=== PATIENT | female | born 1985 | race Caucasian/White ===

== ENCOUNTER 2021-04-13 13:22 | Emergency (ER) | payer OTHER, SELFPAY ==
[2021-04-13 13:52] VITALS: BP 163/104; PULSE 118; RESP 16; TEMP 36.6; O2SAT 100; BMI 28.3
[2021-04-13 14:59] VITALS: BP 146/86; PULSE 74; O2SAT 89
[2021-04-13 15:00] VITALS: PULSE 101; O2SAT 100
[2021-04-13 15:30] VITALS: PULSE 93; O2SAT 99
--- NOTE | 2021-04-13 15:52 | ED.BACK ---
HPI - Back Pain/Injury <Nba Orourke PA-C - Last Filed: 04/13/21 18:56> General Chief Complaint: Back Pain/Injury Stated Complaint: old back injury, pain, tingeling down leg Time Seen by Provider: 04/13/21 15:15 Source: patient Limitations: no limitations History of Present Illness HPI Narrative: Patient is a 35-year-old female presenting to the emergency department today for an evaluation of worsening back pain. Patient states that she has an approximately a year long history L5-S1 disc protrusion for which she is currently in physical therapy. She states that last night her pain significantly worsened, noting that she has experienced a ?hot and cold? sensation throughout the right thigh. Additionally, patient notes increased frequency of urination but denies pain with urination or blood in her urine. Patient denies fever, chills, chest pain, shortness of breath, cough, nausea, vomiting, diarrhea, abdominal pain, dysuria, hematuria, numbness or tingling in the anterior thighs bilaterally, urinary incontinence, or fecal incontinence. No other concerns voiced at this time. Related Data Previous Rx's Medication Instructions Recorded cyclobenzaprine 10 mg tablet 10 mg PO BEDTIME PRN #10 tab 04/13/21 gabapentin 300 mg capsule 300 mg PO BEDTIME #10 cap 04/13/21 prednisone 20 mg tablet 20 mg PO BID #3 tab 04/13/21 lidocaine 4 % topical patch (Lido 1 patch TOPICAL DAILY PRN #30 ea 04/26/21 Abdoul) meloxicam 7.5 mg tablet 7.5 mg PO DAILY PRN #20 tab 04/26/21 methocarbamol 500 mg tablet 500 mg PO BEDTIME PRN #20 tab 04/26/21 Allergies Allergy/AdvReac Type Severity Reaction Status Date / Time erythromycin base Allergy Intermediate Verified 04/13/21 13:58 Review of Systems <Nba Orourke PA-C - Last Filed: 04/13/21 18:56> Constitutional Constitutional: Denies chills, Denies fatigue, Denies fever(s), Denies frequent falls, Denies lethargy and Denies weakness Eyes Eyes: Denies loss of vision ENT Ears, Nose, Mouth, and Throat: Denies dizziness and Denies neck pain Cardiovascular Cardiovascular: Denies chest pain, Denies irregular heart rhythm, Denies lightheadedness, Denies palpitations, Denies dyspnea, Denies dyspnea on exertion and Denies orthopnea Respiratory Respiratory: Denies cough, Denies dyspnea, Denies dyspnea on exertion and Denies wheezing Gastrointestinal Gastrointestinal: Denies abdominal pain, Denies change in bowel habits, Denies diarrhea, Denies nausea and Denies vomiting Genitourinary Genitourinary: Denies hematuria, Denies flank pain, Denies urinary incontinence and Reports urinary urgency (Increased frequency) Musculoskeletal Musculoskeletal: Reports back pain, Denies muscle weakness, Denies neck pain, Denies numbness, Reports radiating pain into limb (Right thigh, hot cold sensations) and Denies tingling Neurologic Neurologic: Denies behavioral changes, Denies confusion, Denies dizziness, Denies frequent falls, Denies loss of vision, Denies numbness, Denies tingling and Denies weakness Psychiatric Psychiatric: Denies behavioral changes and Denies confusion Endocrine Endocrine: Denies fatigue and Denies palpitations Allergic/Immunologic Allergic/Immunologic: Denies wheezing Patient History <Nba Orourke PA-C - Last Filed: 04/13/21 18:56> Social History Smoking Status: Never smoker Smoking Status: Never smoker Substance Use Type: does not use Exam <ZEFERINO Briones Last Filed: 04/13/21 18:56> Narrative Exam Narrative: GENERAL: 35 year old patient appears stated age. Well-developed patient, in mild distress. HEAD: Atraumatic. Normocephalic. EYES: Pupils equal round and reactive. Extraocular motions intact. No scleral icterus. No injection or drainage. ENT: Nose without bleeding, purulent drainage. Throat without erythema, tonsillar hypertrophy or exudate. Airway patent. NECK: Trachea midline. Non tender CARDIOVASCULAR: Regular rate and rhythm without murmurs, gallops, or rubs. RESPIRATORY: Clear to auscultation. Breath sounds equal bilaterally. No wheezes, rales, or rhonchi. GASTROINTESTINAL: Abdomen soft, non-tender, nondistended. EXTREMITIES: No edema or joint tenderness. No deformity noted throughout the bilateral lower extremities. BACK: No deformity or crepitance. No flank tenderness. Mild tenderness appreciated over the right-sided paraspinal muscles. NEURO: AOx3. No saddle anesthesia appreciated. SKIN: No rash or erythema of visible areas Initial Vital Signs Initial Vital Signs: Vital Signs Temperature 98 F 04/13/21 13:52 Pulse Rate 118 H 04/13/21 13:52 Respiratory Rate 16 04/13/21 13:52 Blood Pressure 163/104 H 04/13/21 13:52 Pulse Oximetry 100 04/13/21 13:52 <Holden Irving MD - Last Filed: 04/27/21 01:32> Initial Vital Signs Initial Vital Signs: Vital Signs Temperature 98 F 04/13/21 13:52 Pulse Rate 118 H 04/13/21 13:52 Respiratory Rate 16 04/13/21 13:52 Blood Pressure 163/104 H 04/13/21 13:52 Pulse Oximetry 100 04/13/21 13:52 Course <Nba Orourke PA-C - Last Filed: 04/13/21 18:56> Course Course Narrative: PO prednisone, gabapentin, Flexeril administered Orders Ordered: Discontinued Medications Cyclobenzaprine HCl (Cyclobenzaprine 10 Mg Tablet) 10 mg PO NOW ONE Stop: 04/13/21 15:51 Last Admin: 04/13/21 16:14 Dose: 10 mg Documented by: DIAN Gabapentin (Gabapentin 300 Mg Capsule) 300 mg PO NOW ONE Stop: 04/13/21 15:51 Last Admin: 04/13/21 16:14 Dose: 300 mg Documented by: DIAN Prednisone (Prednisone 20 Mg Tablet) 40 mg PO NOW ONE Stop: 04/13/21 15:51 Last Admin: 04/13/21 16:14 Dose: 40 mg Documented by: DIAN Vital Signs Vital signs: Vital Signs - 8 hr 04/13/21 13:52 04/13/21 14:59 04/13/21 15:00 Temperature 98 F Pulse Rate 118 H 74 101 H Respiratory Rate 16 Blood Pressure 163/104 H 146/86 H Pulse Oximetry 100 89 L 100 04/13/21 15:30 04/13/21 16:00 Temperature Pulse Rate 93 H 96 H Respiratory Rate Blood Pressure 126/78 Pulse Oximetry 99 98 <Holden Irving MD - Last Filed: 04/27/21 01:32> Orders Ordered: Discontinued Medications Cyclobenzaprine HCl (Cyclobenzaprine 10 Mg Tablet) 10 mg PO NOW ONE Stop: 04/13/21 15:51 Last Admin: 04/13/21 16:14 Dose: 10 mg Documented by: DIAN Gabapentin (Gabapentin 300 Mg Capsule) 300 mg PO NOW ONE Stop: 04/13/21 15:51 Last Admin: 04/13/21 16:14 Dose: 300 mg Documented by: DIAN Prednisone (Prednisone 20 Mg Tablet) 40 mg PO NOW ONE Stop: 04/13/21 15:51 Last Admin: 04/13/21 16:14 Dose: 40 mg Documented by: DIAN Vital Signs Vital signs: Vital Signs - 8 hr 04/13/21 13:52 04/13/21 14:59 04/13/21 15:00 Temperature 98 F Pulse Rate 118 H 74 101 H Respiratory Rate 16 Blood Pressure 163/104 H 146/86 H Pulse Oximetry 100 89 L 100 04/13/21 15:30 04/13/21 16:00 Temperature Pulse Rate 93 H 96 H Respiratory Rate Blood Pressure 126/78 Pulse Oximetry 99 98 MDM - Back Pain/Injury <Nba Orourke PA-C - Last Filed: 04/13/21 18:56> Lab Data Labs: Urine Dip Bedside Urine Glucose Negative Bedside Urine Bilirubin - Negative Bedside Urine Ketone - Negative Bedside Urine Occult Blood - Negative Bedside Urine Protein - Negative Bedside Urine Urobilinogen - Negative Bedside Urine Nitrite - Negative Bedside Urine Leukocytes - Negative Esterase MDM Narrative Medical decision making narrative: To consider disc herniation versus disc protrusion versus cauda equina syndrome verses pyelonephritis versus nephrolithiasis versus urinary tract infection. Overall history and physical examination are reassuring. Decided against imaging as no significant focal neurological deficits appreciated, and no recent injury or trauma was reported. Additionally, patient has a known history L5-S1 disc protrusion. At this time patient feels her symptoms have improved and she feels comfortable being discharged home. Strict return precautions discussed with patient prior to discharge. <Holden Irving MD - Last Filed: 04/27/21 01:32> Lab Data Labs: Urine Dip Bedside Urine Glucose Negative Bedside Urine Bilirubin - Negative Bedside Urine Ketone - Negative Bedside Urine Occult Blood - Negative Bedside Urine Protein - Negative Bedside Urine Urobilinogen - Negative Bedside Urine Nitrite - Negative Bedside Urine Leukocytes - Negative Esterase Discharge Plan Departure Patient Disposition: Home Clinical Impression: Herniation of intervertebral disc between L5 and S1 Strain of lumbar region Qualifiers: Encounter type: subsequent encounter Qualified Code(s): S39.012D - Strain of muscle, fascia and tendon of lower back, subsequent encounter Instructions: DI for Back Pain With Sciatica Activity Restrictions/Additional Instructions: *You have been diagnosed with strain of lumbar region, L5-S1 disc protrusion *What to do: *Please continue to take your regular medications as directed. [X] New medication prescriptions sent to your pharmacy: [facility] - Gabapentin, Prednisone, Flexeril [ ] New medication written as a paper prescription [ ] No new medications given *Please follow up with your primary care provider in 2-3 days, call for an appointment. Let them know you were seen in the Emergency Department and that we ask that you be seen in follow up. We will electronically transmit a record of today's note if your PCP is in our system *If you do not have a primary care provider please contact the [facility] Resource line at [phone]. They will ask some questions about your medical history and help get you set up with a doctor in the community. *Return to Emergency Department if you should have any new, worsening or concerning symptoms, such as fever greater than 101 F, shaking chills, worsening pain, urinary incontinence, fecal incontinence, decreased sensation along the inner thighs, persistent vomiting or other bothersome symptoms. Prescriptions: New prednisone 20 mg tablet 20 mg PO BID Qty: 3 0RF gabapentin 300 mg capsule 300 mg PO BEDTIME Qty: 10 0RF cyclobenzaprine 10 mg tablet 10 mg PO BEDTIME PRN (Reason: muscle spasm) Qty: 10 0RF No Action lidocaine [Lido Abdoul] 4 % adhesive patch,medicated 1 patch topical DAILY PRN (Reason: pain) Qty: 30 0RF meloxicam 7.5 mg tablet 7.5 mg PO DAILY PRN (Reason: low back pain) Qty: 20 0RF Rx Instructions: Please take with food and water to protect her stomach, please do not take with any other anti-inflammatories like ibuprofen or Aleve. methocarbamol 500 mg tablet 500 mg PO BEDTIME PRN (Reason: low back pain) Qty: 20 0RF Referrals: Maximus Hayward MD [Primary Care Provider] - <Holden Irving MD - Last Filed: 04/27/21 01:32> Cosign ED Attending Cosignature Attestation: I was immediately available in the department for consultation. This documentation has been reviewed and I agree with assessment and plan. Supervised by Holden Irving MD
[2021-04-13 16:00] VITALS: BP 126/78; PULSE 96; O2SAT 98
[2021-04-13] MEDS: GABAPENTIN 300 MG CAPSULE PO (16:14)
[2021-04-13] MEDS: predniSONE 20 MG TABLET 40 MG PO (16:14)
[2021-04-13] MEDS: CYCLOBENZAPRINE 10 MG TABLET PO (16:14)
== END 2021-04-13 17:02 | disposition home or self-care (01) ==
PROVIDERS: Emergency Provider Physician Assistant; PCP Family Medicine
DX: S39.012A Strain of muscle, fascia and tendon of lower back, initial encounter (principal); M51.27 Other intervertebral disc displacement, lumbosacral region; X58.XXXA Exposure to other specified factors, initial encounter
CPT/HCPCS: 81003; 99283

== ENCOUNTER 2021-04-26 15:05 | Emergency (ER) | payer OTHER, SELFPAY ==
[2021-04-26 15:08] VITALS: BP 172/89; PULSE 116; RESP 22; TEMP 36.6; O2SAT 100
--- NOTE | 2021-04-26 16:25 | ED_ITS ---
HPI - Back Pain/Injury <DEANA Worthington - Last Filed: 04/26/21 20:37> General Chief Complaint: Back Pain/Injury Stated Complaint: strange back pain, numb butt cheek Time Seen by Provider: 04/26/21 16:09 Source: patient History of Present Illness HPI Narrative: 35-year-old female presents to the emergency department with complaint of low back pain which is different nature than her prior L5-S1 injury. She reports that she does not have any sciatica with this, her pain is slightly higher than her prior pain was on her spine. She denies any fever, nausea vomiting, difficulty ambulating, loss of bowel or bladder, any sensation changes to her lower extremities. She does report that she has had an improvement of her low back pain on a prednisone but she did not feel much improvement from the gabapentin, the Flexeril that she was prescribed was helpful for her to sleep. She endorses that her right buttock has felt numb occasionally, and she denies any other radiation of this pain. She reports that hot packs are helpful, she denies any weakness, or altered sensation in her lower extremities. Related Data Previous Rx's Medication Instructions Recorded cyclobenzaprine 10 mg tablet 10 mg PO BEDTIME PRN #10 tab 04/13/21 gabapentin 300 mg capsule 300 mg PO BEDTIME #10 cap 04/13/21 prednisone 20 mg tablet 20 mg PO BID #3 tab 04/13/21 lidocaine 4 % topical patch (Lido 1 patch TOPICAL DAILY PRN #30 ea 04/26/21 Abdoul) meloxicam 7.5 mg tablet 7.5 mg PO DAILY PRN #20 tab 04/26/21 methocarbamol 500 mg tablet 500 mg PO BEDTIME PRN #20 tab 04/26/21 Allergies Allergy/AdvReac Type Severity Reaction Status Date / Time erythromycin base Allergy Intermediate Verified 04/13/21 13:58 Review of Systems <DEANA Worthington - Last Filed: 04/26/21 20:37> Review of Systems Narrative: General: denies fever, chills Head/Neck: denies headache, neck pain Eyes: denies visual changes, eye pain Cardio: denies chest pain, palpitations Respiratory: denies shortness of breath, cough GI: denies abdominal pain, nausea, vomiting, or diarrhea : denies dysuria, hematuria MSK: denies joint pain, muscle weakness, endorses low back pain in lumbar region, no skin changes, Skin: denies rash, itching Neuro: denies numbness, tingling Patient History <DEANA Worthington - Last Filed: 04/26/21 20:37> Social History Smoking Status: Never smoker Smoking Status: Never smoker Substance Use Type: does not use Exam <DEANA Worthington - Last Filed: 04/26/21 20:37> Narrative Exam Narrative: Independently reviewed vitals signs and nursing notes. General: Awake, alert, nontoxic, no cardiorespiratory distress Head/Neck: Atraumatic, neck full range of motion Eyes: EOMI, conjunctiva normal Nose: nares patent, no rhinorrhea Mouth/Throat: moist mucus membranes, posterior pharynx normal, no oral lesions Cardio: Regular rate and rhythm, no peripheral edema Respiratory: respirations unlabored without wheezing, stridor, or rales. No retractions. GI: Abdomen soft, nontender MSK: Moves all extremities, neurovascularly intact, patient endorses tenderness over L3 through 5 on exam, no swelling, erythema, mass, step-offs, or other. Patient's range of motion is intact without deficit, no neuro deficits, patient does have surrounding muscle tightness Skin: Normal capillary refill, no rash Neuro: Normal speech and cognition, normal gait Initial Vital Signs Initial Vital Signs: Vital Signs Temperature 97.9 F 04/26/21 15:08 Pulse Rate 116 H 04/26/21 15:08 Respiratory Rate 22 04/26/21 15:08 Blood Pressure 172/89 H 04/26/21 15:08 Pulse Oximetry 100 04/26/21 15:08 <Geoffrey Serra DO - Last Filed: 04/27/21 06:58> Initial Vital Signs Initial Vital Signs: Vital Signs Temperature 97.9 F 04/26/21 15:08 Pulse Rate 116 H 04/26/21 15:08 Respiratory Rate 22 04/26/21 15:08 Blood Pressure 172/89 H 04/26/21 15:08 Pulse Oximetry 100 04/26/21 15:08 Course <DEANA Worthington - Last Filed: 04/26/21 20:37> Orders Ordered: Discontinued Medications Ketorolac Tromethamine (Ketorolac 10 Mg Tablet) 10 mg PO NOW ONE Stop: 04/26/21 16:45 Last Admin: 04/26/21 17:12 Dose: 10 mg Documented by: JOHN Methocarbamol (Methocarbamol 500 Mg Tablet) 500 mg PO NOW ONE Stop: 04/26/21 16:44 Last Admin: 04/26/21 17:12 Dose: 500 mg Documented by: JOHN Vital Signs Vital signs: Vital Signs - 8 hr 04/26/21 15:08 04/26/21 17:51 Temperature 97.9 F Pulse Rate 116 H 84 Respiratory Rate 22 16 Blood Pressure 172/89 H 138/96 H Pulse Oximetry 100 100 <Geoffrey Serra DO - Last Filed: 04/27/21 06:58> Orders Ordered: Discontinued Medications Ketorolac Tromethamine (Ketorolac 10 Mg Tablet) 10 mg PO NOW ONE Stop: 04/26/21 16:45 Last Admin: 04/26/21 17:12 Dose: 10 mg Documented by: JOHN Methocarbamol (Methocarbamol 500 Mg Tablet) 500 mg PO NOW ONE Stop: 04/26/21 16:44 Last Admin: 04/26/21 17:12 Dose: 500 mg Documented by: JOHN Vital Signs Vital signs: Vital Signs - 8 hr 04/26/21 15:08 04/26/21 17:51 Temperature 97.9 F Pulse Rate 116 H 84 Respiratory Rate 22 16 Blood Pressure 172/89 H 138/96 H Pulse Oximetry 100 100 MDM - Back Pain/Injury <DEANA Worthington - Last Filed: 04/26/21 20:37> Lab Data Labs: Point of Care Testing Test Results Negative Urine Dip Bedside Urine Glucose Negative Bedside Urine Bilirubin - Negative Bedside Urine Ketone - Negative Urine Specific [place] 1.030 Bedside Urine Occult Blood - Negative Bedside Urine pH 6.0 Bedside Urine Protein - Negative Bedside Urine Urobilinogen - Negative Bedside Urine Nitrite - Negative Bedside Urine Leukocytes - Negative Esterase Imaging Data Lumbar XR: Radiologist's Impression: PROCEDURE:? XR LUMBAR SPINE 2-3V ? INDICATIONS:? low back pain ? TECHNIQUE:? Two views of the lumbar spine were acquired.? ? COMPARISON:? None. ? FINDINGS:? ? Bones:? Five [id number] vertebrae are present.? There is normal bony alignment.? No vertebral body compression fractures.? No suspicious bony lesions.? Slight disc height loss L5-S1.? Otherwise normal disc spaces. ? Soft tissues:? Overlying bowel gas pattern is normal.? No suspicious soft tissue calcifications.? ? ? IMPRESSION:? Mild L5-S1 disc height loss.? Otherwise normal lumbar spine. ? ? Dictated by: Samantha Snell M.D. on 04/26/2021 at 17:15 ? ? Approved by: Samantha Snell M.D. on 04/26/2021 at 17:16 ? MDM Narrative Medical decision making narrative: 35-year-old pleasant female presents to the emergency department with complaint of ongoing low back pain which is different in nature than her prior L5-S1 herniated disc. She was seen in the emergency department on 04/13/2021 and given Flexeril, gabapentin, and prednisone. She reports that the Flexeril was pretty helpful, denies much improvement from gabapentin or the prednisone. Her x-ray showed mild L5-S1 disc height loss otherwise a normal lumbar spine without vertebral body compression fractures an otherwise normal disc spaces. Patient does not have any sciatica. I suspect that the L5-S1 disc height loss is from a prior injury. I have referred her to physical therapy as well as Orthopedics in [place] which is likely covered by her insurance. My differential includes cauda equina, epidural abscess, spinal stenosis, disc herniation, muscle strain, piriformis syndrome, SI joint pathology, ankylosing spondylitis. She was prescribed meloxicam, lidocaine patches, and encouraged to continue her PT exercises as she has stretching for at least 1 minute for lengthening, and following up with her PCP, orthopedics, and PT at the very. <Geoffrey Serra, DO - Last Filed: 04/27/21 06:58> Lab Data Labs: Point of Care Testing Test Results Negative Urine Dip Bedside Urine Glucose Negative Bedside Urine Bilirubin - Negative Bedside Urine Ketone - Negative Urine Specific [place] 1.030 Bedside Urine Occult Blood - Negative Bedside Urine pH 6.0 Bedside Urine Protein - Negative Bedside Urine Urobilinogen - Negative Bedside Urine Nitrite - Negative Bedside Urine Leukocytes - Negative Esterase Discharge Plan Departure Patient Disposition: Home Clinical Impression: Herniation of intervertebral disc between L5 and S1 Strain of lumbar region Qualifiers: Encounter type: subsequent encounter Qualified Code(s): S39.012D - Strain of muscle, fascia and tendon of lower back, subsequent encounter Instructions: DI for Back Spasm, DI for Back Strain or Sprain Activity Restrictions/Additional Instructions: *You have been diagnosed with low back pain which is likely is strain. Sorry do not know exactly why your experiencing this pain, I think it is most likely due to a strain but it could be piriformis syndrome, SI joint issue, compensation at another vertebral location, or purely muscle tightness from a muscle strain. I referred you to PT at a couple different locations, see which 1 works with your insurance best. Next, let Maximus know that you came into the emergency dep artment for ongoing pain, let her know how these treatments help with the you. If I were you I will go ahead and call Dr. Ortiz's office since you have a referral, and see if he can help. Since this has been ongoing for the last, I think your at the point where calling Orthopedics is a good idea. Thank you for coming in today, are you have been experiencing this pain still, I hope they fee l better soon, let me know how it goes! :) You are awesome. *What to do: *Please continue to take your regular medications as directed. [x] New medication prescriptions sent to your pharmacy: [[facility] ] [ ] New medication written as a paper prescription [ ] No new medications given *Please follow up with your primary care provider in 2-3 days, call for an appointment. Let them know you were seen in the Emergency Department and that we ask that you be seen in follow up. We will electronically transmit a record of today's note if your PCP is in our system *If you do not have a primary care provider please contact the [facility] Resource line at [phone]. They will ask some questions about your medical history and help get you set up with a doctor in the community. *Return to Emergency Department if you should have any new, worsening or concerning symptoms, such as [fever greater than 101F, chills, worsening pain, persistent vomiting or other bothersome symptoms] Prescriptions: New lidocaine [Lido Abdoul] 4 % adhesive patch,medicated 1 patch topical DAILY PRN (Reason: pain) Qty: 30 0RF meloxicam 7.5 mg tablet 7.5 mg PO DAILY PRN (Reason: low back pain) Qty: 20 0RF Rx Instructions: Please take with food and water to protect her stomach, please do not take with any other anti-inflammatories like ibuprofen or Aleve. methocarbamol 500 mg tablet 500 mg PO BEDTIME PRN (Reason: low back pain) Qty: 20 0RF No Action prednisone 20 mg tablet 20 mg PO BID Qty: 3 0RF gabapentin 300 mg capsule 300 mg PO BEDTIME Qty: 10 0RF cyclobenzaprine 10 mg tablet 10 mg PO BEDTIME PRN (Reason: muscle spasm) Qty: 10 0RF Referrals: [facility] [Provider Group] - 5-7 days [facility] - [facility] [Provider Group] [facility] [Provider Group] Maximus Hayward MD [Primary Care Provider] - Coy Ortiz MD [Non-Staff] - 5-7 days (for low back strain/pain) <Geoffrey Serra, - Last Filed: 04/27/21 06:58> [facility] Dr Serra Co-Sign Statement: I was available for consultation during this patient's emergency department visit. This chart is signed by myself for administrative purposes only. I did not have direct contact with this patient during this visit. They were seen independently by the APC.
--- NOTE | 2021-04-26 16:45 | DI.RAD.S_ITS ---
PROCEDURE: XR LUMBAR SPINE 2-3V INDICATIONS: low back pain TECHNIQUE: Two views of the lumbar spine were acquired. COMPARISON: None. FINDINGS: Bones: Five [id number] vertebrae are present. There is normal bony alignment. No vertebral body compression fractures. No suspicious bony lesions. Slight disc height loss L5-S1. Otherwise normal disc spaces. Soft tissues: Overlying bowel gas pattern is normal. No suspicious soft tissue calcifications. IMPRESSION: Mild L5-S1 disc height loss. Otherwise normal lumbar spine. Dictated by: Samantha Snell M.D. on 04/26/2021 at 17:15 Approved by: Samantha Snell M.D. on 04/26/2021 at 17:16
[2021-04-26] MEDS: methocarbamoL 500 MG TABLET PO (17:12)
[2021-04-26] MEDS: KETOROLAC 10 MG TABLET PO (17:12)
[2021-04-26 17:51] VITALS: BP 138/96; PULSE 84; RESP 16; O2SAT 100
== END 2021-04-26 17:51 | disposition home or self-care (01) ==
PROVIDERS: Emergency Provider Nurse Practitioner Critical Care Medicine; PCP Family Medicine
DX: S39.012A Strain of muscle, fascia and tendon of lower back, initial encounter (principal); M51.27 Other intervertebral disc displacement, lumbosacral region; X58.XXXA Exposure to other specified factors, initial encounter
CPT/HCPCS: 72100; 81003; 81025; 99283; 99284

== ENCOUNTER 2024-08-15 07:55 | Emergency (ER) | payer OTHER, SELFPAY ==
[2024-08-15 08:12] VITALS: BP 202/109; PULSE 104; RESP 20; TEMP 36.7; O2SAT 100; BMI 31.1
--- NOTE | 2024-08-15 08:20 | DI.RAD.S_ITS ---
PROCEDURE: XR CHEST 2V INDICATIONS: cough fever TECHNIQUE: 2 views of the chest were acquired. COMPARISON: None. FINDINGS AND IMPRESSION: Lungs are clear. Heart size is normal. No pleural effusions. Unremarkable osseous structures. Dictated by: Dileep Whaley M.D. on 08/15/2024 at 8:48 Approved by: Dileep Whaley M.D. on 08/15/2024 at 8:48
--- NOTE | 2024-08-15 08:42 | ED.URI ---
HPI - URI/Sore Throat General Chief Complaint: Upper Respiratory Symptoms Stated Complaint: Really Really sick . can't hear out of left ear, Time Seen by Provider: 08/15/24 08:06 Source: patient Mode of arrival: Ambulatory History of Present Illness HPI Narrative: Patient 39-year-old female no medical history presenting today with upper respiratory like symptoms. She reports that she had a cold about a week or 2 ago she says it got better. They travel to [place] and over last 48 hours things got significantly worse. She feels like she has significant facial pressure hard of hearing out of the left side of her ear sore throat. She sometimes feels like she was coughing up green stuff. She was afebrile now been taking [id number] NyQuil DayQuil without significant relief. She did take some Tylenol which she says helped. No significant shortness of breath no leg swelling no prior history of blood clots she was not on hormones. It they got back from [place] 2 days ago. She reports that she was sick in [place] as well. Related Data Previous Rx's Medication Instructions Recorded cyclobenzaprine 10 mg tablet 10 mg PO BEDTIME PRN muscle spasm 04/13/21 #10 tabs gabapentin 300 mg capsule 300 mg PO BEDTIME #10 caps 04/13/21 prednisone 20 mg tablet 20 mg PO BID #3 tabs 04/13/21 lidocaine 4 % topical patch (Lido 1 patch topical DAILY PRN pain #30 04/26/21 ) ea meloxicam 7.5 mg tablet 7.5 mg PO DAILY PRN low back pain 04/26/21 #20 tabs methocarbamol 500 mg tablet 500 mg PO BEDTIME PRN low back 04/26/21 pain #20 tabs amoxicillin 500 mg capsule 1,000 mg (2 x 500 mg) PO TID 5 08/15/24 days #30 caps doxycycline hyclate 100 mg capsule 100 mg PO BID #10 caps 08/15/24 Allergies Allergy/AdvReac Type Severity Reaction Status Date / Time erythromycin base Allergy Intermediate Verified 04/13/21 13:58 Patient History Social History (Reviewed 04/26/21 @ 16:55 by Virgie Mobley [facility]) Smoking Status: Never smoker Smoking Status: Never smoker Exam Initial Vital Signs Initial Vital Signs: Vital Signs Temperature 98.1 F 08/15/24 08:12 Pulse Rate 104 H 04/03/25 08:12 Respiratory Rate 20 08/15/24 08:12 Blood Pressure 202/109 H 08/15/24 08:12 Pulse Oximetry 100 08/15/24 08:12 Oxygen Delivery Method Room Air 08/15/24 08:12 GENERAL: Alert pleasant 39-year-old female appears nontoxic HEENT: Head atraumatic,EOMI, pupils reactive, face symmetric, moist mucous membranes EARS: Tympanic membranes visualized, no erythema or bulging, no hemotympanum left ear does have some cerumen in patch and but no significant erythema PHARYNX: Erythematous no tonsillar up-to-date no uvula swelling or deviation Neck is supple no meningeal signs CARDIOVASCULAR: Regular rate and rhythm without murmurs, rubs or gallops. RESPIRATORY: Breath sounds equal bilaterally, no wheezes rales or rhonchi. ABDOMEN: Soft, nontender. Normoactive bowel sounds all 4 quadrants. No guarding or rebound. EXTREMITIES: Normal range of motion, no clubbing or edema. Neurovascularly intact NEUROLOGICAL: Alert and oriented x4.Normal gait and speech. Cranial nerves II through XII grossly intact. SKIN: Warm, dry, no laceration, no petechiae, no rashes or lesions. Course Orders Ordered: ED Orders 08/15/24 08:09 Covid-19 + FLU A/B + RSV - PCR Stat 08/15/24 08:20 Chest [XR chest 2V] Stat 08/15/24 08:26 Strep Grp A by PCR Rapid Stat Throat Culture Stat Vital Signs Vital signs: Vital Signs - 8 hr 08/15/24 08:12 Temperature 98.1 F Pulse Rate 104 H Respiratory Rate 20 Blood Pressure 202/109 H Pulse Oximetry 100 Oxygen Delivery Method Room Air MDM - URI/Sore Throat Lab Data Labs: Lab Results 08/15/24 08/15/24 Range/Units 08:09 08:26 SARS-CoV-2 (PCR) Negative (Negative) Influenza A (RT-PCR) Flu a negative (NEGATIVE) Influenza B (RT-PCR) Flu b negative (NEGATIVE) RSV (PCR) Negative (Negative) Group A Strep (PCR) Negative (Negative) Imaging Data Chest x-ray: Radiologist's Impression: PROCEDURE: XR CHEST 2V INDICATIONS: cough fever TECHNIQUE: 2 views of the chest were acquired. COMPARISON: None. FINDINGS AND IMPRESSION: Lungs are clear. Heart size is normal. No pleural effusions. Unremarkable osseous structures. Dictated by: Dileep Whaley M.D. on 08/15/2024 at 8:48 Approved by: Dileep Whaley M.D. on 08/15/2024 at 8:48 [facility] Narrative Medical decision making narrative: Patient is 39-year-old female without significant past medical history presenting today with ongoing upper respiratory like symptoms. It is a had cold improved and now feeling worse over last 48 hours. Also with recent travel. Not tachycardic not short of breath no hormone use low suspicion for pulmonary embolism at this time. Really complaining of left-sided ear pain and throat pain. X-ray is clear however her 's he was diagnosed with pneumonia. Viral panel and strep are all negative. At this time we will go ahead and treat with antibiotics for an atypical pneumonia in ongoing symptoms. She overall appears well nontoxic. Discharge Plan Departure Patient Disposition: Home Clinical Impression: Atypical pneumonia Instructions: DI for Atypical Pneumonia Activity Restrictions/Additional Instructions: *You have been diagnosed with atypical pneumonia *What to do: At this time x-ray, COVID panel and stress *Continue to take medications as directed Amoxicillin 1000 mg 3 times a day for 5 days Doxycycline 100 mg twice a day for 5 days *Follow up with your primary care provider in 2-3 days or call [phone] *Return to ER if you should have increasing shortness of breath chest pain [or] any new, worsening or concerning symptoms Prescriptions: New amoxicillin 500 mg capsule 1,000 mg PO TID 5 Days Qty: 30 0RF doxycycline hyclate 100 mg capsule 100 mg PO BID Qty: 10 0RF No Action lidocaine [Lido Abdoul] 4 % adhesive patch,medicated 1 patch topical DAILY PRN (Reason: pain) Qty: 30 0RF meloxicam 7.5 mg tablet 7.5 mg PO DAILY PRN (Reason: low back pain) Qty: 20 0RF Rx Instructions: Please take with food and water to protect her stomach, please do not take with any other anti-inflammatories like ibuprofen or Aleve. methocarbamol 500 mg tablet 500 mg PO BEDTIME PRN (Reason: low back pain) Qty: 20 0RF prednisone 20 mg tablet 20 mg PO BID Qty: 3 0RF gabapentin 300 mg capsule 300 mg PO BEDTIME Qty: 10 0RF cyclobenzaprine 10 mg tablet 10 mg PO BEDTIME PRN (Reason: muscle spasm) Qty: 10 0RF Referrals: Maximus Hayward MD [Primary Care Provider] - Stand Alone Forms: Patient Portal/API/Survey
[2024-08-15 08:44] LABS: Strep Grp A by PCR Rapid Negative (Negative)
[2024-08-15 09:01] LABS: COVID-19 CEPHEID 4-PLEX PCR Negative (Negative); Influenza A - CEPHEID Flu A NEGATIVE (NEGATIVE); Influenza B - CEPHEID Flu B NEGATIVE (NEGATIVE); Respiratory Syncytial Virus Negative (Negative)
[2024-08-15 09:37] VITALS: BP 174/98; PULSE 100; RESP 20; TEMP 36.4; O2SAT 98
== END 2024-08-15 09:38 | disposition home or self-care (01) ==
PROVIDERS: Emergency Provider Emergency Medicine; PCP Family Medicine
DX: J18.9 Pneumonia, unspecified organism (principal)
CPT/HCPCS: 0241U; 71046; 87070; 87651; 99281; 99283